=== PATIENT | female | born 1960 | race Caucasian/White ===

== ENCOUNTER 2017-03-13 23:12 | Observation (INO) | payer SELFPAY ==
[2017-03-13] MEDS ORDERED: NITROGLYCERIN 0.4 MG SL TAB (BOTTLE OF 3) SL PRN (23:20)
[2017-03-13] MEDS ORDERED: Sodium Chloride 0.9% 1,000 ML PRIMARY IV ONE (23:20)
[2017-03-13] MEDS ORDERED: NORMAL SALINE 10 ML SYRINGE FLUSH IVP PRN (23:20)
[2017-03-13] MEDS ORDERED: ASPIRIN 81 MG (BABY) CHEWABLE TABLET PO ONE (23:20)
[2017-03-13] MEDS ORDERED: LORazepam 2 MG/1 ML VIAL IVP ONE (23:23)
[2017-03-13 23:34] LABS: BASOPHILS # (AUTO) 0.06 10*3/UL; BASOPHILS % (AUTO) 0.5 % (0-1); EOSINOPHILS # (AUTO) 0.23 10*3/UL; EOSINOPHILS % (AUTO) 2.1 % (0-8); HEMATOCRIT 32.6 % (37.0-47.0); HEMOGLOBIN 10.4 g/dL (12.0-16.0); LYMPHOCYTES # (AUTO) 3.55 10*3/uL; MEAN CORPUSCULAR HEMOGLOBIN 28.1 PG (27-31); MEAN CORPUSCULAR HGB CONC 31.9 g/dL (33-37); MEAN CORPUSCULAR VOLUME 88.1 FL (81-99); MEAN PLATELET VOLUME 9.4 FL (7.4-12.2); MONOCYTES # (AUTO) 0.86 10*3/UL (0.3-0.8); MONOCYTES % (AUTO) 7.8 % (5-15); NEUTROPHILS # (AUTO) 6.28 10*3/UL; NEUTROPHILS % (AUTO) 56.7 % (50-80)
[2017-03-13 23:35] LABS: PLATELET MORPHOLOGY COMMENT NORMAL MORPHOLOGY (NORM); RBC MORPHOLOGY COMMENT NORMAL MORPHOLOGY (NORM); WBC MORPHOLOGY COMMENT NORMAL MORPHOLOGY (NORM)
[2017-03-13 23:39] LABS: BLOOD UREA NITROGEN 10 mg/dL (7-22); BUN/CREATININE RATIO 11.11 (6-20); CALCIUM 8.9 mg/dL (8.7-10.7); EST GLOMERULAR FILTRATION > 60 (>60 ml/min/1.73m(2)); LIPASE 78 IU/L (23-300); SERUM ALBUMIN 3.8 g/dL (3.5-4.8)
[2017-03-13 23:51] LABS: CREATINE KINASE MB 0.85 NG/ML (0.00-5.00)
[2017-03-13 23:52] LABS: TROPONIN I < 0.012 ng/mL (< 0.040)
[2017-03-14] MEDS ORDERED: MORPHINE SULFATE 4 MG/1 ML IVP ONE (00:04)
[2017-03-14] MEDS ORDERED: ONDANSETRON 4 MG/2 ML VIAL IVP ONE (00:05)
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
--- NOTE | 2017-03-14 01:32 | DI ---
HISTORY: Chest pain, elevated D-dimer. TECHNIQUE: Contiguous axial images of the chest were obtained and submitted for interpretation. FINDINGS: Patient body habitus creates artifact that limits evaluation of fine anatomic detail. No m ain or proximal segmental pulmonary emboli. The lungs are hypoinflated. There is left greater than right lung base atelectasis versus scar. No pn eumothorax, pleural effusion, or area of consolidation. Airways are patent with no endobronchial les ion. There is a stent in the descending thoracic aorta. No evidence of great vessel injury, dissection, or aneurysm. Heart size is at the upper limits of normal with no pericardial effusion. No mediastinal or hilar lymphadenopathy. The thyroid exhibits normal CT morphology. Limited evaluation of the upper abdomen reveals prior cholecystectomy. 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 No acute osseous abnormality or aggressive osseous lesion. Multiple remote left-sided rib fractures a re noted. There is multilevel degenerative disc disease with apex right curvature of the thoracolumba r spine. IMPRESSION: 1. main or proximal segmental pulmonary emboli. No CT evidence of acute cardiopulmonary pathology. 2. 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
[2017-03-14] MEDS ORDERED: NITROGLYCERIN 0.4 MG SL TAB (BOTTLE OF 3) SL PRN (01:58)
[2017-03-14] MEDS ORDERED: LIDOCAINE W/ SODIUM BICARB 0.5 ML SYR SUBD PRN (01:58)
[2017-03-14] MEDS ORDERED: CALCIUM CARBONATE 500 MG (TUMS) CHEWABLE TABLET PO PRN (01:58)
[2017-03-14] MEDS ORDERED: MAG HYDROX/AL HYDROX/SIMETH 30 ML SUSP PO PRN (01:58)
[2017-03-14] MEDS ORDERED: MORPHINE SULFATE 4 MG/1 ML IVP PRN (02:19)
[2017-03-14] MEDS ORDERED: MORPHINE SULFATE 10 MG/1 ML IV PRN (02:19)
[2017-03-14] MEDS: NORMAL SALINE 10 ML SYRINGE FLUSH IVP PRN (02:49)
[2017-03-14 06:03] LABS: TROPONIN I < 0.012 ng/mL (< 0.040)
[2017-03-14] MEDS: MORPHINE SULFATE 2 MG/1 ML IV PRN ×2 (07:12→17:58)
--- NOTE | 2017-03-14 10:20 | EKG ---
[address] [address] Measurements Intervals [place] Rate: 89 P: -7 AL: 175 QRS: 7 QRSD: 90 T: 67 QT: 368 QTc: 415 Interpretive Statements SINUS RHYTHM No previous ECG available for comparison Electronically Signed On 03-14-17 15:32:38 MDT by Roland Singh [id number]
[2017-03-14] MEDS: Potassium Chloride Tab 10 MEQ TAB PO SCH (11:37)
[2017-03-14] MEDS: Sertraline Tab 50 MG TAB PO SCH (11:37)
[2017-03-14] MEDS: ASPIRIN 81 MG (BABY) CHEWABLE TABLET PO SCH (11:39)
[2017-03-14] MEDS: Pantoprazole Inj 40 MG in Normal Saline Flush 10 ML IVP SCH (11:39)
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
[2017-03-14] MEDS: Metoprolol TARTRATE Tab 50 MG TAB PO SCH (14:20)
[2017-03-14] MEDS: LISINOPRIL 10 MG TABLET PO SCH (14:21)
[2017-03-14] MEDS: GUAIFENESIN/CODEINE SYRUP 100 MG/ 10 MG/ 5 ML UD CUP PO PRN ×2 (14:34→20:05)
[2017-03-14] MEDS: KETOROLAC 15 MG/1 ML VIAL IVP SCH (20:25)
[2017-03-14] MEDS ORDERED: traZODone Tab 50 MG TAB PO SCH (21:00)
--- NOTE | 2017-03-14 21:30 | DI ---
[facility] CHEST X-RAY, 03/13/2017 11:20 PM : Clinical History: Chest pain. Elevated D-dimer test. Previous Exam: None at this facility. There is no acute soft tissue or bony abnormality. There is cardiomegaly without CHF. There is no acu te infiltrate or effusion but there is blunting of the left costophrenic angle with evidence of old l eft-sided rib fractures. Mediastinal structures are normal. There are no pulmonary nodules. Readin. There is chronic blunting of the left costophrenic angle. No acute infiltrate or effusion is pres ent. 2. Cardiomegaly without CHF.
[2017-03-15] MEDS: KETOROLAC 15 MG/1 ML VIAL IVP SCH ×3 (02:05→13:40)
[2017-03-15 07:25] LABS: BLOOD UREA NITROGEN 9 mg/dL (7-22); BUN/CREATININE RATIO 11.25 (6-20); CALCIUM 8.6 mg/dL (8.7-10.7); EST GLOMERULAR FILTRATION > 60 (>60 ml/min/1.73m(2)); SERUM ALBUMIN 3.3 g/dL (3.5-4.8)
--- NOTE | 2017-03-15 08:27 | STRESSTEST ---
[facility] [place] Interpretive Statements 56 yo female comes in woth complaints of atypical chest pain for the last few days. had some chest pain during stress phase relieved by Jas holden .trops are negative times 3. , no acute changes on this portion of test will await pics [email or web address]
[2017-03-15 08:51] VITALS: RESP 20
[2017-03-15] MEDS: Metoprolol TARTRATE Tab 50 MG TAB PO SCH (08:54)
[2017-03-15] MEDS: Potassium Chloride Tab 10 MEQ TAB PO SCH (08:54)
[2017-03-15] MEDS: LISINOPRIL 10 MG TABLET PO SCH (08:54)
[2017-03-15] MEDS: ASPIRIN 81 MG (BABY) CHEWABLE TABLET PO SCH (08:54)
[2017-03-15] MEDS: Sertraline Tab 50 MG TAB PO SCH (08:54)
[2017-03-15] MEDS: Pantoprazole Inj 40 MG in Normal Saline Flush 10 ML IVP SCH (09:02)
[2017-03-15] MEDS: GUAIFENESIN/CODEINE SYRUP 100 MG/ 10 MG/ 5 ML UD CUP PO PRN (10:00)
--- NOTE | 2017-03-15 10:20 | DCSUMMARY ---
Hospitalization Summary Hospital Course: Final Discharge Diagnosis: Current Visit Problems Problem Status Priority Diagnosed Code Chest pain Acute R07.9 Diagnostic Data, Laboratory Data, and Procedures of Signifigance: Laboratory Results 03/13/17 03/14/17 03/14/17 Range/Units 23:27 05:08 08:00 WBC 11.07 H (4.8-10.8) 10^3/uL RBC 3.70 L (4.20-5.40) 10^6/uL Hgb 10.4 L (12.0-16.0) g/dL Hct 32.6 L (37.0-47.0) % MCV 88.1 (81-99) FL MCH 28.1 (27-31) PG MCHC 31.9 L (33-37) g/dL RDW Std Deviation 42.4 (39-50) fL RDW Coeff of Annalisa 13.6 (11.5-14.5) % Plt Count 266 (140-350) 10*3/uL MPV 9.4 (7.4-12.2) FL Immature Gran % (Auto) 0.8 (0-5) % Neut % (Auto) 56.7 (50-80) % Lymph % (Auto) 32.1 (10-50) % Johnson % (Auto) 7.8 (5-15) % Eos % (Auto) 2.1 (0-8) % Baso % (Auto) 0.5 (0-1) % Immature Gran # (Auto) 0.09 10*3/UL Neut # (Auto) 6.28 10*3/UL Lymph # (Auto) 3.55 10*3/uL Johnson # (Auto) 0.86 H (0.3-0.8) 10*3/UL Eos # (Auto) 0.23 10*3/UL Baso # (Auto) 0.06 10*3/UL WBC Morphology Comment Normal morphology (NORM) Plt Morphology Comment Normal morphology (NORM) RBC Morph Comment Normal morphology (NORM) D-Dimer 1.57 H (0.00-0.59) mg/L Sodium 142 (135-145) meq/L Potassium 4.5 (3.8-5.2) meq/L Chloride 105 (98-112) meq/L Carbon Dioxide 29 (23-33) meq/L Anion Gap 8 (5-20) BUN 10 (7-22) mg/dL Creatinine 0.9 (0.50-1.20) mg/dL Estimated GFR > 60 (>60 ml/min/1.73m(2)) BUN/Creatinine Ratio 11.11 (6-20) Glucose 101 (78-110) mg/dL Calculated Osmolality 292.0 (267-292) mOsm/kg Calcium 8.9 (8.7-10.7) mg/dL Magnesium 2.0 (1.6-2.4) mg/dL Total Bilirubin 0.4 (0.3-1.2) mg/dL AST 19 (8-39) IU/L ALT 27 (9-52) IU/L Alkaline Phosphatase 88 (38-126) IU/L Total Creatine Kinase 47 (30-135) IU/L CK-MB (CK-2) 0.85 (0.00-5.00) NG/ML Troponin I < 0.012 < 0.012 < 0.012 (< 0.040) ng/mL Total Protein 7.4 (6.1-8.0) g/dL Albumin 3.8 (3.5-4.8) g/dL Globulin 3.6 (2.50-4.10) g/dL Albumin/Globulin Ratio 1.00 L (1.3-2.0) mg/g Amylase 55 (30-110) U/L Lipase 78 (23-300) IU/L // Range/Units 07:00 WBC (4.8-10.8) 10^3/uL RBC (4.20-5.40) 10^6/uL Hgb (12.0-16.0) g/dL Hct (37.0-47.0) % MCV (81-99) FL MCH (27-31) PG MCHC (33-37) g/dL RDW Std Deviation (39-50) fL RDW Coeff of Annalisa (11.5-14.5) % Plt Count (140-350) 10*3/uL MPV (7.4-12.2) FL Immature Gran % (Auto) (0-5) % Neut % (Auto) (50-80) % Lymph % (Auto) (10-50) % Johnson % (Auto) (5-15) % Eos % (Auto) (0-8) % Baso % (Auto) (0-1) % Immature Gran # (Auto) 10*3/UL Neut # (Auto) 10*3/UL Lymph # (Auto) 10*3/uL Johnson # (Auto) (0.3-0.8) 10*3/UL Eos # (Auto) 10*3/UL Baso # (Auto) 10*3/UL WBC Morphology Comment (NORM) Plt Morphology Comment (NORM) RBC Morph Comment (NORM) D-Dimer 1.18 H (0.00-0.59) mg/L Sodium 138 (135-145) meq/L Potassium 4.3 (3.8-5.2) meq/L Chloride 104 (98-112) meq/L Carbon Dioxide 28 (23-33) meq/L Anion Gap 6 (5-20) BUN 9 (7-22) mg/dL Creatinine 0.8 (0.50-1.20) mg/dL Estimated GFR > 60 (>60 ml/min/1.73m(2)) BUN/Creatinine Ratio 11.25 (6-20) Glucose 96 (78-110) mg/dL Calculated Osmolality 284.0 (267-292) mOsm/kg Calcium 8.6 L (8.7-10.7) mg/dL Magnesium (1.6-2.4) mg/dL Total Bilirubin 0.4 (0.3-1.2) mg/dL AST 21 (8-39) IU/L ALT 25 (9-52) IU/L Alkaline Phosphatase 79 (38-126) IU/L Total Creatine Kinase (30-135) IU/L CK-MB (CK-2) (0.00-5.00) NG/ML Troponin I (< 0.040) ng/mL Total Protein 6.6 (6.1-8.0) g/dL Albumin 3.3 L (3.5-4.8) g/dL Globulin 3.3 (2.50-4.10) g/dL Albumin/Globulin Ratio 1.00 L (1.3-2.0) mg/g Amylase (30-110) U/L Lipase (23-300) IU/L History and Physical pertinent to Admission: Course of Hospitalization: This very nice 56-year-old female with past medical history significant for PTSD and hypertension on lisinopril and beta ella . comes with to the hospital complaining of chest pain, atypical in nature troponins remain negative 3. Patient is seems to be very anxious Lexiscan was performed while in the hospital. Which shows a reversible defect in the apex distal ischemia. Patient has been having chest pains off and on while admitted but no shortness of breath or radiation to neck jaw or arm. She will be transferred well [facility] under the care of Dr. Owen for possible catheter or evaluation by cardiology I spoke with Dr. Owen he does not want or any drips or other meds at present time On the date of discharge, the patient was examined: Gen.: No acute distress, alert, nontoxic Heart: Regular rate and rhythm, no murmurs, clicks, gallops, or rubs Lungs: Clear to auscultation bilaterally, breathing is nonlabored Abdomen/GI: Normal tones on auscultation, soft, nontender, nondistended Musculoskeletal/extremities: No clubbing, cyanosis, or edema Vitals reviewed and are listed below Vital Signs (24 hrs) Temp Pulse Pulse Resp BP Pulse Ox 03/15/17 08:50 97.5 F 77 20 139/74 96 03/15/17 07:00 76 03/15/17 05:27 95 03/15/17 05:00 63 18 142/51 95 03/15/17 03:00 67 03/14/17 23:55 97.1 F 75 18 157/89 92 03/14/17 23:00 77 03/14/17 20:52 97.4 F 88 20 161/76 91 03/14/17 19:00 68 03/14/17 16:29 96.9 F 72 16 161/48 95 03/14/17 15:00 85 03/14/17 11:32 97.2 F 71 16 143/68 94 03/14/17 11:00 68 Assessment and Plan: 1. As per discharge assessments above 2. Disposition: Home 3. Condition on discharge, stable and improved. 4. Diet: regular diet 5. Activities: resume normal activities 6. Follow-Up: 1. PCP 2. 7. Medications at the Time of Discharge: Home Medications Medication Instructions Recorded Confirmed Type Aspirin 81 mg PO DAILY 03/13/17 03/13/17 History Lisinopril 30 mg PO DAILY 03/13/17 03/13/17 History Metoprolol Tartrate 50 mg PO DAILY 03/13/17 03/13/17 History Potassium Chloride Klor-Con 10 meq PO DAILY 03/13/17 03/13/17 History Sertraline HCl 25 mg PO DAILY 03/13/17 03/13/17 History Trazodone HCl 1 tab PO BEDTIME 03/13/17 03/13/17 History 8. Time, care, counseling and coordination of care for this discharge is greater than 30 minutes. Exam - Vitals Vital Signs: Vital Signs Temperature 97.5 F Temperature Source Temporal Artery Scan Pulse Rate [Telemetry] 65 Pulse Rate [Pulse Oximeter] 77 Pulse Rate 76 Respiratory Rate 20 Blood Pressure [Left Arm] 139/74 Blood Pressure 134/77 Pulse Ox 96 Oxygen Flow Rate 2 Oxygen Delivery Method Room Air Height 5 ft 5 in Weight 115.485 kg Patient Problems - Patient Problem List (1) Chest pain Current Visit: Yes Status: Acute
[2017-03-15 13:10] VITALS: TEMP 97.4
[2017-03-15] MEDS ORDERED: ONDANSETRON 4 MG/2 ML VIAL IVP PRN (13:21)
[2017-03-15] MEDS ORDERED: ONDANSETRON 4 MG/2 ML VIAL ONE (13:38)
[2017-03-15] MEDS: NORMAL SALINE 10 ML SYRINGE FLUSH IVP PRN (13:40)
--- NOTE | 2017-03-15 13:41 | DI ---
2 DAY LEXISCAN STRESS & REST MYOCARDIAL PERFUSION SCANS, 03/14/2017-03/15/2017: Clinical History: Chest pain. Previous Exam: None at this facility. Monitoring Physician: Dr. Yovany Tony. Dose: Stress dose: 36 mCi on 03/15/2017. Rest dose: 36 mCi on 03/14/2017. Quantitative Analysis: Plantiga program with low dose limited CT chest scan attenuation correctio n. Exam Quality: Excellent. Rejected Beats: Stress = 0%; Rest = 0%. HR: Stress = 60-63 b/m; Rest = 70-7 4 b/m. Left ventricular chamber sizes are normal at stress and rest. Transient ischemic dilatation ratio is 1.16 (normal Beltran TID <= 1.22; normal Lexiscan TID <= 1.33). Stress LVEF: 63%; rest LVEF: 67%. The n on-attenuated corrected scans show a small fixed defect in the apicoseptal segment. 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 All other christy perfuse normally at stress and rest both on the attenuated and non-attenuated corrected scans. Stress and rest wall motion and myocardial thickening are normal. Limited CT scans of the heart show no coronary artery calcifications. There a re no lung nodules or enlarged nodes. Readin. Normal stress and rest left ventricular chamber size. Transient ischemic dilatation ratio is norm al at 1.16. 2. Low normal stress and rest LVEF values of 63% and 67%, respectively. 3. On the attenuated corrected scans, there is a reversible defect indicating ischemia in the lucy apical segment corresponding to the distribution of the distal LAD. All other christy perfuse normally at stress and rest. 4. Stress and rest wall motion and myocardial thickening are normal. 5. No coronary artery calcifications are noted. There are no lung nodules or abnormal lymph nodes.
[2017-03-15] MEDS ORDERED: LORazepam 2 MG/1 ML VIAL ONE (15:31)
[2017-03-15] MEDS ORDERED: LORazepam 2 MG/1 ML VIAL IM ONE (15:37)
[2017-03-15] MEDS ORDERED: LORazepam 2 MG/1 ML VIAL IVP ONE (16:00)
== END 2017-03-15 15:41 | disposition short-term general hospital (02) ==
LOC: ER 23:12 → MED/SURG 03-14 01:53
PROVIDERS: ADMIT Internal Medicine; ATTEND Internal Medicine
DX: R07.9 Chest pain, unspecified (principal)
CPT/HCPCS: 36415 ×2; 71010; 71275; 78452; 80053 ×2; 82150; 82550; 82553; 83690; 83735; 84484 ×2; 85025; 85379 ×2; 93005; 93010; 93016; 93017; 93018; 94761 ×2; 96374 ×2; 96375 ×3; 96376; 99284 ×2; A9500; J2785; J1885; J2060; J2270; J2405; J3490; J7030